=== PATIENT | female | born 1995 | race Caucasian/White ===

== ENCOUNTER 2021-08-24 17:27 | Inpatient (IN) | payer OTHER ==
[~2021-08-24] VITALS: Ht 165.1 cm; Wt 122.5 kg
[~2021-08-24 17:27] MED LIST: PHENERGAN 25 MG25 M1 PO; ZOFRAN ODT 4 MG4 MG PO
[2021-08-24 18:37] LABS: HEMOGLOBIN 11.9 gm/dl (12.3-15.3); RED BLOOD COUNT 3.98 M/UL (4.00-5.10); WHITE BLOOD COUNT 15.1 K/UL (4.5-11.0)
[2021-08-26] MEDS ORDERED: IBUPROFEN600 MG PO (00:54)
[2021-08-26] MEDS ORDERED: DOCUSATE SODIU250 MG PO (00:54)
[2021-08-26] MEDS ORDERED: HYDROCODONE-AC1 EACH PO (00:54)
[2021-08-27 05:47] LABS: HEMOGLOBIN 8.7 gm/dl (12.3-15.3)
[2021-08-28] MEDS ORDERED: FERROUS SULFAT325 M2 PO (08:30)
== END 2021-08-28 14:27 | disposition home or self-care (01) | DRG 788 ==
LOC: GENOP 17:27 → OB 18:10
PROVIDERS: Obstetrics & Gynecology; ADMIT Obstetrics & Gynecology
PROC: 10D00Z1 Extraction of Products of Conception, Low, Open Approach (ICD-10-PCS; principal; 2021-08-26)
PROC: 4A1HXCZ Monitoring of Products of Conception, Cardiac Rate, External Approach (ICD-10-PCS; 2021-08-26)
PROC: 10907ZC Drainage of Amniotic Fluid, Therapeutic from Products of Conception, Via Natural or Artificial Opening (ICD-10-PCS; 2021-08-26)
PROC: 3E033VJ Introduction of Other Hormone into Peripheral Vein, Percutaneous Approach (ICD-10-PCS; 2021-08-26)
PROC: 3E0234Z Introduction of Serum, Toxoid and Vaccine into Muscle, Percutaneous Approach (ICD-10-PCS; 2021-08-26)
DX: O62.1 Secondary uterine inertia (principal); O99.344 Other mental disorders complicating childbirth; Z3A.38 38 weeks gestation of pregnancy; Z37.0 Single live birth; Z20.822 Contact with and (suspected) exposure to COVID-19; F32.A Depression, unspecified; F17.210 Nicotine dependence, cigarettes, uncomplicated; O99.334 Smoking (tobacco) complicating childbirth; Z83.3 Family history of diabetes mellitus; Z82.49 Family history of ischemic heart disease and other diseases of the circulatory system; Z80.3 Family history of malignant neoplasm of breast; Z28.310 Unvaccinated for COVID-19; Z23 Encounter for immunization
CPT/HCPCS: 36415; 80307; 81001; 82800; 85014; 85018; 85025; 85461; 86850; 86900; 86901; 90471; 90715; C9113; J0690; J1885; J2250; J2274; J2370; J2405; J2590; J2790; J3010; J7040; J7120

== ENCOUNTER 2021-10-20 22:00 | Emergency (ER) | payer OTHER ==
[~2021-10-20 22:00] MED LIST changes: +DOCUSATE SODIU250 MG PO; +FERROUS SULFAT325 M2 PO; +HYDROCODONE-AC1 EACH PO; +IBUPROFEN600 MG PO
== END 2021-10-20 23:30 | disposition home or self-care (01) ==
LOC: ER1 22:00
DX: U07.1 COVID-19 (principal); F17.210 Nicotine dependence, cigarettes, uncomplicated
CPT/HCPCS: 0240U; 99283